=== PATIENT | female | born 1950 | race Caucasian/White ===

== ENCOUNTER → 2018-07-16 | Outpatient (CLI) | payer MEDICARE, OTHER ==
--- NOTE | 2018-07-18 07:46 | RADIOLOGY REPORT (SQ) ---
EXAM DESCRIPTION: PET CT SKULL/THIGH COMPLETED DATE/TIME: 07/16/2018 10:46 pm REASON FOR STUDY: OTHER DISEASES OF MEDIASTINUM, NOT ELSEWHERE J98.59 OTHER DISEASES OF MEDIASTINUM , NOT ELSEWHERE CLASSIFI COMPARISON: CT chest [facility] 06/21/2018 RADIONUCLIDE AND DOSE: 9.7 mCi F18 FDG The route of agent administration: Intravenous FASTING BLOOD SUGAR: 89 mg/dl CONTRAST TYPE AND DOSE: No CT contrast given. TECHNIQUE: Blood glucose level was verified. Above dose of FDG was injected intravenously. 2-D seg mented attenuation correction images were obtained from the base of the skull to the midthighs. Nonc ontrast CT images were obtained for attenuation correction and fusion with emission images. CT image s were performed without oral or intravenous contrast and are not sensitive for parenchymal lesions. A series of overlapping emission PET images were obtained. Images reviewed and manipulated at [facility] work station by the radiologist. Images stored on PACS. LIMITATIONS: None. FINDINGS: HEAD AND NECK: No areas of abnormal metabolic activity in the soft tissues of the head and neck. CHEST: A right paratracheal mass is present, 6.5 x 6 cm in size, encasing the right upper lobe pulmon yossi artery and bronchus, and bulging into the right hilum and right sub- carinal and AP window region . This is a malignant mass with SUV of 19.5. No other foci of increased metabolic activity over the chest. ABDOMEN AND PELVIS: No areas of abnormal metabolic activity in the abdomen or pelvis. Expected physi ologic activity is present in the genitourinary system and bowel. PROXIMAL LOWER EXTREMITIES: No areas of abnormal metabolic activity in the soft tissues of the lower extremities. BONES: No abnormal metabolic activity in the visualized skeleton. ADDITIONAL CT FINDINGS: Small hiatal hernia. Clips post cholecystectomy. Atherosclerotic thoracic a nd abdominal aorta without discrete aneurysm. Spotty coronary artery calcifications. OTHER: Liver background activity 2.0 SUV. Blood pool background activity 1.7 SUV IMPRESSION: Malignant right peritracheal mass TECHNICAL DOCUMENTATION: JOB ID: [id number]- All Rights Reserved Reading location - IP/workstation name: [email or web address]
== END ==
LOC: RAD 16:19
PROVIDERS: ATTEND Internal Medicine Critical Care Medicine
DX: J98.59 Other diseases of mediastinum, not elsewhere classified (principal); R91.8 Other nonspecific abnormal finding of lung field
CPT/HCPCS: 78815; A9552

== ENCOUNTER 2020-04-01 12:53 | Emergency (ER) | payer MEDICARE, OTHER ==
[2020-04-01 14:10] LABS: HEMATOCRIT 32.6 % (36.0-47.0); HEMOGLOBIN 11.1 g/dL (12.0-15.5); MEAN CORPUSCULAR HEMOGLOBIN 33.7 pg (27.0-33.4); MEAN CORPUSCULAR HGB CONC 34.2 g/dL (32.0-36.0); MEAN CORPUSCULAR VOLUME 99 fl (80-97); PLATELET COUNT 249 10^3/uL (150-450); RED BLOOD COUNT 3.31 10^6/uL (3.72-5.28); WHITE BLOOD COUNT 6.5 10^3/uL (4.0-10.5)
[2020-04-01 14:26] LABS: ALBUMIN 2.5 g/dL (3.5-5.0); ALKALINE PHOSPHATASE 72 U/L (38-126); ANION GAP 8 (5-19); ASPARTATE AMINO TRANSFERASE 20 U/L (14-36); BILIRUBIN,DIRECT 0.4 mg/dL (0.0-0.4); BILIRUBIN,TOTAL 0.7 mg/dL (0.2-1.3); BLOOD UREA NITROGEN 20 mg/dL (7-20); CALCIUM 8.7 mg/dL (8.4-10.2); CARBON DIOXIDE 30 mmol/L (22-30); CHLORIDE 93 mmol/L (98-107); CREATINE KINASE 25 U/L (30-135); GLUCOSE 108 mg/dL (75-110); POTASSIUM 3.2 mmol/L (3.6-5.0); TOTAL PROTEIN 4.5 g/dL (6.3-8.2)
[2020-04-01 14:37] LABS: CREATINE KINASE MB 0.62 ng/mL (<4.55)
[2020-04-01 14:44] LABS: TROPONIN I < 0.012 ng/mL
[2020-04-01 14:45] LABS: ABSOLUTE LYMPHOCYTES# (MANUAL) 0.6 10^3/uL (0.5-4.7); ABSOLUTE MONOCYTES # (MANUAL) 0.1 10^3/uL (0.1-1.4); BASOPHILS % (MANUAL) 0 % (0-2); EOSINOPHILS % (MANUAL) 0 % (0-6); LYMPHOCYTES % (MANUAL) 9 % (13-45); MONOCYTES % (MANUAL) 2 % (3-13); SEGMENTED NEUTROPHILS % (MAN) 89 % (42-78); TOTAL CELLS COUNTED 100
[2020-04-01 14:46] LABS: PLATELET COMMENT ADEQUATE
[2020-04-01 14:47] LABS: ANISOCYTOSIS SLIGHT; POLYCHROMASIA SLIGHT
[2020-04-01 14:48] LABS: OVALOCYTES SLIGHT
--- NOTE | 2020-04-01 15:14 | ER Document Report ---
ED General - General Chief Complaint: Weakness Stated Complaint: DIZZYNESS/WEAKNESS Time Seen by Provider: 04/01/20 14:11 Primary Care Provider: KATERINA MONREAL MD [COMMUNITY BASED STAFF] - Follow up as needed TRAVEL OUTSIDE OF THE [place] IN LAST 30 DAYS: No - HPI Notes: Patient is a 70-year-old female with a known history of small cell lung carcinoma, stage IV, under treatment at [facility], who presents to the emergency department for evaluation of weakness and dizziness. The patient is a poor historian. She states it has been going on for "some time" but she really cannot tell me how long. She proceeds to tell me that she has no appetite, really is not eating or drinking. She is sleeping up to 12 hours a day. On further questioning, her of over 50 years recently. He was hospitalized at this facility, then transferred to [facility], and she was notified by telephone that he had . She still does not have a clear understanding of what happened to him. She admits to being depressed when asked. She denies any suicidal or homicidal ideation. She denies any visual or auditory hallucination. She does live alone in the home, but her son and his family live across the street. She states they cook her food frequently, but she really does not eat it. She denies any visual changes. She can speak and swallow without difficulty. Moving her arms and legs without difficulty. She does complain of pain on her buttocks and on her rectal area, she really cannot give me a timeline for that either. Otherwise she has been taking her medications as prescribed. She currently is "on a break" from treatment for her cancer, she cannot elaborate as to what she means in regards to that either. Patient also iterates that she fell at occupational therapy, she cannot give me an exact date. It appears, through evaluation of her patient portal information from [facility], that she was seen and had a CT scan and imaging, basic blood work, a Bills on the . At that point they did find 2 subdural hemorrhages. She had an MRI the next day. It showed no signs of metastatic disease at that point, SDH is noted. Patient cannot tell me any further information in regards to her follow-up about this issue. She states she does not have a primary care p vega, she only follows with oncology. - Related Data Allergies/Adverse Reactions: codeine Allergy (Verified 10/28/18 20:06) florentino mouth Adverse Reaction (Uncoded 10/29/18 06:01) Eugenol Adverse Reaction (Uncoded 10/29/18 06:01) Past Medical History - General Information source: Patient - Social History Smoking Status: Former Smoker Family History: Reviewed & Not Pertinent, COPD Pulmonary Medical History: Reports: Hx COPD Renal/ Medical History: Denies: Hx Peritoneal Dialysis Malignancy Medical History: Reports: Hx Lung Cancer - Stage IV small cell GI Medical History: Reports: Hx Gastroesophageal Reflux Disease Psychiatric Medical History: Denies: Hx Depression Past Surgical History: Reports: Hx Breast Surgery - benign tumors R side, Hx Cholecystectomy - Immunizations Hx Pneumococcal Vaccination: 04/03/18 Review of Systems - Review of Systems Constitutional: See HPI EENT: No symptoms reported Cardiovascular: No symptoms reported Respiratory: No symptoms reported Gastrointestinal: See HPI Genitourinary: No symptoms reported Musculoskeletal: See HPI Skin: No symptoms reported Neurological/Psychological: No symptoms reported Physical Exam - Vital signs Vitals: Temp 97.5 F 04/01/20 12:53 - Notes Notes: This is an extremely cachectic appearing 70-year-old female, who appears her stated age, in no acute distress. Vital signs reviewed, please refer to chart. Head is normocephalic, atraumatic. Pupils equal round, reactive to light. Neck is supple without meningismus. Heart is regular rate and rhythm. Lungs reveal diminished breath sounds but no wheezes, rales, rhonchi. Abdomen is scaphoid, nontender, normoactive bowel sounds noted. Extremities without cyanosis or clubbing. She does have 2+ pitting edema to the feet and ankles. Peripheral pulses are equal. Skin is warm and dry. She has stage I decubitus ulcers noted overlying the sacrum and the PSIS bilaterally. Patient is awake, alert, neurological exam is nonfocal. Course - Re-evaluation Re-evalutation: 04/01/20 15:13 Patient presents to the emergency department for evaluation. Laboratory investigations and imaging were ordered. On assessment, I do suspect that the patient is suffering from depression. Initially I offered consultation with our psychosocial team, possible recommendations for medications. She states she will consider that at this time. Otherwise awaiting blood work and imaging results. Patient is currently stable, we will continue to monitor. 04/01/20 21:26 Patient's laboratory investigations revealed a hypokalemia. The patient refused any oral medications, did eventually agree to IV replacement. This did take some time here in the emergency department. I strongly suspect the depression is the etiology of the majority of her symptoms. I was able to get a psychosocial evaluation. It was recommended that her Remeron be increased. She is amenable to this. I explained to her that she needs to increase her potassium intake, increase her nutritional intake. She voiced understanding. I also strongly encouraged her to establish care with a primary care doctor locally here. I will give her the name of our on-call physician today, Dr. Caceres, as well as other physicians in the area that I know to be accepting new patients. She is amenable to this plan was discharged. She is to return to the ED with worsening or new concerning symptoms of any sort. - Vital Signs Vital signs: Temp Pulse Resp BP Pulse Ox 97.5 F 87 15 111/72 100 04/01/20 12:53 04/01/20 16:09 04/01/20 21:01 04/01/20 21:00 04/01/20 21:01 - Laboratory Result Diagrams: 04/01/20 13:41 04/01/20 13:41 Laboratory results interpreted by me: 04/01/20 04/01/20 04/01/20 13:41 13:41 13:41 RBC 3.31 L Hgb 11.1 L Hct 32.6 L MCV 99 H MCH 33.7 H RDW 15.0 H Seg Neuts % (Manual) 89 H Lymphocytes % (Manual) 9 L Monocytes % (Manual) 2 L Sodium 131.0 L Potassium 3.2 L Chloride 93 L Magnesium Creatine Kinase 25 L NT-Pro-B Natriuret Pep 332 H Total Protein 4.5 L Albumin 2.5 L Urine Protein Urine Ketones Urine Blood Ur Leukocyte Esterase 04/01/20 04/01/20 13:41 19:46 RBC Hgb Hct MCV MCH RDW Seg Neuts % (Manual) Lymphocytes % (Manual) Monocytes % (Manual) Sodium Potassium Chloride Magnesium 1.5 L Creatine Kinase NT-Pro-B Natriuret Pep Total Protein Albumin Urine Protein 30 H Urine Ketones 20 H Urine Blood SMALL H Ur Leukocyte Esterase MODERATE H - Diagnostic Test Radiology reviewed: Reports reviewed Radiology results interpreted by me: 04/01/20 21:27 Chest X-Ray 04/01/20 15:05 IMPRESSION: Emphysematous change without evidence of acute cardiopulmonary process. Head CT 04/01/20 15:05 IMPRESSION: CHRONIC CHANGES OF ATROPHY AND MICROVASCULAR ISCHEMIA. NO ACUTE PROCESS. EVIDENCE OF ACUTE STROKE: NO. - EKG Interpretation by Me Additional EKG results interpreted by me: 04/01/20 21:27 Sinus mechanism with a rate of 80 bpm. Wandering baseline noted. Normal axis and intervals. Nonspecific ST changes, but no acute ST elevation concerning for infarction. No significant change when compared to prior study of October 30, 2018 Discharge - Discharge Clinical Impression: Hypokalemia, Generalized weakness, Depression, Hyponatremia Condition: Stable Disposition: HOME, SELF-CARE Instructions: Depression ([facility]), Hypokalemia ([facility]), Hyponatremia ([facility]) Additional Instructions: Change your mirtazapine. Please take 15 mg, or 1 tablet at night, and 7.5 mg, or 1/2 tablet, in the morning. Follow-up with your oncologist, or our on-call primary care provider, listed below. Please increase intake of foods with potassium, such as apricots, bananas. Try to stay hydrated. If you develop worsening or new concerning symptoms of any sort, please return immediately to the emergency department for reevaluation. Please note there were some increased white blood cells in your urine. There were no other overt signs of infection. This is been sent for culture. You will be contacted if any signs of further infection are identified. Referrals: KATERINA MONREAL MD [COMMUNITY BASED STAFF] - Follow up as needed VERONIQUE CACERES DO [NO LOCAL MD] - Follow up as needed BENJAMIN HOWARD MD [ACTIVE STAFF] - Follow up as needed
--- NOTE | 2020-04-01 15:39 | RADIOLOGY REPORT (SQ) ---
EXAM DESCRIPTION: CT HEAD WITHOUT IMAGES COMPLETED DATE/TIME: 04/01/2020 3:28 pm REASON FOR STUDY: weakness, known SDH x2 COMPARISON: None. TECHNIQUE: Axial images acquired through the brain without intravenous contrast. Images reviewed wi th bone, brain and subdural windows. Additional sagittal and coronal reconstructions were generated. Images stored on PACS. All CT scanners at this facility use dose modulation, iterative reconstruction, and/or weight based d osing when appropriate to reduce radiation dose to as low as reasonably achievable (ALARA). [facility]: Dose Right [facility]: CareDose [facility]: Dose Right [facility]: Teradose 4D [facility]: Roundrate RADIATION DOSE: CT Rad equipment meets quality standard of care and radiation dose reduction techniq ues were employed. CTDIvol: 53.2 mGy. DLP: 937 mGy-cm.mGy. LIMITATIONS: None. FINDINGS: VENTRICLES: Prominent. CEREBRUM: No masses. No hemorrhage. No midline shift. Old lacunar infarct left insula. Areas of l ow density in the white matter most likely due to chronic micro-vascular ischemic change. No evidenc e for acute infarction. CEREBELLUM: No masses. No hemorrhage. No alteration of density. No evidence for acute infarction. EXTRAAXIAL SPACES: Age-related involutional change. No fluid collections. No masses. ORBITS AND GLOBE: No intra- or extraconal masses. Normal contour of globe without masses. CALVARIUM: No fracture. PARANASAL SINUSES: No fluid or mucosal thickening. SOFT TISSUES: No mass or hematoma. OTHER: No other significant finding. IMPRESSION: CHRONIC CHANGES OF ATROPHY AND MICROVASCULAR ISCHEMIA. NO ACUTE PROCESS. EVIDENCE OF ACUTE STROKE: NO. TECHNICAL DOCUMENTATION: JOB ID: [id number] Quality ID # [id number]: Final reports with documentation of one or more dose reduction techniques (e.g., Au tomated exposure control, adjustment of the mA and/or kV according to patient size, use of iterative reconstruction technique) 2010 [employer]- All Rights Reserved Reading location - IP/workstation name: [email or web address]
--- NOTE | 2020-04-01 15:59 | RADIOLOGY REPORT (SQ) ---
EXAM DESCRIPTION: CHEST 2 VIEWS IMAGES COMPLETED DATE/TIME: 04/01/2020 3:41 pm REASON FOR STUDY: weakness COMPARISON: 10/29/2018 EXAM PARAMETERS: NUMBER OF VIEWS: two views TECHNIQUE: Digital Frontal and Lateral radiographic views of the chest acquired. RADIATION DOSE: NA LIMITATIONS: none FINDINGS: LUNGS AND PLEURA: Emphysematous change with hyperinflation and flattening of the hemidiaph ragms. Biapical scarring. No focal consolidation. MEDIASTINUM AND HILAR STRUCTURES: No masses or contour abnormalities. HEART AND VASCULAR STRUCTURES: Heart size. Vascular calcifications. BONES: No acute findings. HARDWARE: None in the chest. OTHER: No other significant finding. IMPRESSION: Emphysematous change without evidence of acute cardiopulmonary process. TECHNICAL DOCUMENTATION: JOB ID: [id number] 2010 [employer]- All Rights Reserved Reading location - IP/workstation name: [email or web address]
[2020-04-01] MEDS ORDERED: POTASSIUM CHLORIDE 10 MEQ TABLET.ER PO ONE (16:08)
[2020-04-01] MEDS ORDERED: RINGERS SOLUTION,LACTATED 1,000 ML IV ONE (16:08)
[2020-04-01] MEDS ORDERED: POTASSI CL 40 MEQ/NS 1L 1,000 ML IV ONE (16:29)
--- NOTE | 2020-04-01 19:05 | EKG REPORT ---
SEVERITY:- BORDERLINE ECG - SINUS RHYTHM BORDERLINE T ABNORMALITIES, ANT-LAT LEADS : Confirmed by: Gregory Dexter MD 01-Apr-2020 19:03:52
[2020-04-01 20:18] LABS: APPEARANCE,URINE CLOUDY; BILIRUBIN,URINE NEGATIVE (NEGATIVE); COLOR,URINE YELLOW; GLUCOSE, URINE NEGATIVE (NEGATIVE); KETONES,URINE 20 mg/dL (NEGATIVE); LEUKOCYTE ESTERASE,URINE MODERATE (NEGATIVE); NITRITE,URINE NEGATIVE (NEGATIVE); PROTEIN,URINE 30 mg/dL (NEGATIVE); URINE SPECIFIC GRAVITY 1.017; UROBILINOGEN,URINE NEGATIVE mg/dL (<2.0)
[2020-04-01 22:16] VITALS: BP 100/88
== END 2020-04-01 22:35 | disposition home or self-care (01) ==
LOC: ER 12:53
DX: E87.6 Hypokalemia (principal); R53.1 Weakness; E87.1 Hypo-osmolality and hyponatremia; R42 Dizziness and giddiness; F32.9 Major depressive disorder, single episode, unspecified
CPT/HCPCS: 93005; 99285; 96361; 96365; 96366; 36415; 87086; 82553; 82550; 83735; 85025; 87088; 80053; 81001; 84484; 87186; 83880; 71046; 70450; 93010; J7120; J3480